=== PATIENT | male | born 1950 | race Caucasian/White ===

== ENCOUNTER → 2017-01-13 | Outpatient (CLI) | payer MEDICAID ==
[2017-01-13 08:26] LABS: CH 30.1; CHCM 33.1; HCT 43.7 % (39.0-53.0); HDW 2.45; HGB 14.1 gm/dL (13.0-17.5); MCH 29.7 pg (25.0-35.0); MCHC 32.4 g/dL (31.0-37.0); MCV 91.6 fL (80.0-100.0); Mean Platelet Volume 6.8; RBC 4.77 m/uL (4.30-5.90); RDW 13.8 % (11.5-15.5); WBC 5.8 k/uL (3.8-10.6)
[2017-01-13 11:06] LABS: ALT 39 U/L (21-72); AST 31 U/L (17-59); Alkaline Phosphatase 74 U/L (38-126); Anion Gap 8 mmol/L; Blood Urea Nitrogen 21 mg/dL (9-20); Calcium 9.4 mg/dL (8.4-10.2); Carbon Dioxide 29 mmol/L (22-30); Chloride 103 mmol/L (98-107); Cholesterol 181 mg/dL (<200); Glucose 94 mg/dL (74-99); HDL Cholesterol 72 mg/dL (40-60); Non-African American GFR(MDRD) >60 (>60 ml/min/1.73 sqM); Potassium 4.3 mmol/L (3.5-5.1); Sodium 140 mmol/L (137-145); Total Bilirubin 0.9 mg/dL (0.2-1.3); Total Protein 6.9 g/dL (6.3-8.2); Triglycerides 87 mg/dL (<150)
[2017-01-13 11:24] LABS: Prostate Specific Antigen 0.51 ng/mL (0.00-4.00)
== END | disposition home or self-care (01) ==
LOC: LABWHC1 07:42
PROVIDERS: ATTEND Family Medicine
DX: Z00.01 Encounter for general adult medical examination with abnormal findings (principal); Z13.9 Encounter for screening, unspecified
CPT/HCPCS: 36415; 80053; 80061; 84153; 85027

== ENCOUNTER 2017-03-07 07:07 | Day surgery (SDC) | payer MEDICAID ==
[2017-03-06 08:41] VITALS: BMI 22.8
[~2017-03-07 07:07] MED LIST: LACTATED RINGERS 1,000 ML IV SCH
[2017-03-07 07:26] VITALS: RESP 18; TEMP 96.8
[2017-03-07] MEDS ORDERED: LIDOCAINE 1% 20 ML VIAL (10MG/ML) FOR IV START INTRADERMA ONE (07:41)
[2017-03-07] MEDS ORDERED: PROPOFOL 10 MG/ML 20 ML VIAL IV ONE (08:01)
--- NOTE | 2017-03-07 08:17 | P.PCN ---
Date of Procedure: 03/07/17 Preoperative Diagnosis: Postoperative Diagnosis: Procedure(s) Performed: BRIEF HISTORY: Patient is a 66-year-old pleasant white male,scheduled for an elective colonoscopy as a part of screening for colorectal neoplasia. His last colonoscopy was on 10 years ago. PROCEDURE PERFORMED: Colonoscopy. PREOPERATIVE DIAGNOSIS: Screening for colon cancer IV sedation per Anesthesia. PROCEDURE: After informed consent was obtained, the patient, was brought into the endoscopy unit. IV sedation was administered by Anesthesia under continuous monitoring. Digital rectal examination was normal. Initially the Olympus CF- 160 flexible video colonoscope was then inserted in the rectum, gradually advanced into the cecum without any difficulty. Careful examination was performed as the scope was gradually being withdrawn. Ileocecal valve and the appendiceal orifice were visualized and appeared normal. Prep was excellent. Mucosa of the cecum, ascending colon, transverse colon, descending colon, sigmoid colon, and rectum appeared normal. Retroflexion was performed in the rectum and no lesions were seen. The patient tolerated the procedure well. IMPRESSION: Normal-appearing colon from rectum to cecum . RECOMMENDATIONS: Findings of this examination were discussed with the patient as well as some of his family. He was advised to have a repeat screening colonoscopy in 10 years. Implants: Indications for Procedure: Operative Findings: Description of Procedure:
[2017-03-07 08:41] VITALS: BP 120/74; PULSE 57
== END 2017-03-07 09:01 | disposition home or self-care (01) ==
LOC: ORWHC2ENDO 07:07
PROVIDERS: ATTEND Internal Medicine Gastroenterology
DX: Z12.11 Encounter for screening for malignant neoplasm of colon (principal); Z79.899 Other long term (current) drug therapy; Z88.0 Allergy status to penicillin
CPT/HCPCS: J2704; G0121

== ENCOUNTER → 2017-11-10 | Outpatient (CLI) | payer MEDICAID ==
[2017-11-10 14:46] LABS: Blood Urea Nitrogen 16 mg/dL (9-20)
== END | disposition home or self-care (01) ==
LOC: LABWHC1 14:16
PROVIDERS: ATTEND Otolaryngology
DX: H93.3X1 Disorders of right acoustic nerve (principal); H93.11 Tinnitus, right ear; H91.91 Unspecified hearing loss, right ear
CPT/HCPCS: 36415; 82565; 84520

== ENCOUNTER → 2017-11-11 | Outpatient (CLI) | payer MEDICAID ==
--- NOTE | 2017-11-11 10:41 | MR ---
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 TECHNIQUE: Multiplanar, multisequence images of the brain and brainstem were acquired before and aft er administration of 7 ml IV Gadavist. Diffusion weighted imaging was performed. Additional coned-d own sequences through the internal auditory canals and posterior cranial fossa before and after IV co ntrast administration. FINDINGS: Diffusion weighted images demonstrate no evidence of an acute ischemic lesion in the brain. T2/FLAIR weighted sequences show trace burden of bright foci, particularly in the subcortical region of the left temporal lobe. Nonspecific, likely relating to minimal changes of chronic small vessel is chemic disease. Midline structures demonstrate partially empty sella but otherwise normal morphology. The craniocerv ical junction is normal. Brain volume is appropriate. The ventricles are of normal caliber. There is no evidence of an acute intracranial hemorrhage, infarct, mass, mass-effect or an extra-axia l fluid collection. There is no cerebellopontine angle mass. Base internal auditory canals are symmetric. Brainstem and skull base abnormalities are not seen. Post contrast images demonstrate no evidence of pathologic enhancement in the posterior cranial ct a or the internal auditory canals. There is no abnormal enhancement of the labyrinths. Mild mucosal thickening within the ethmoid air cells. Globes are intact. IMPRESSION: 1. Only a couple foci of bright white matter change in the subcortical region, nonspecific, likely re lating to trace burden of chronic small vessel ischemic disease. 2. Otherwise, no intracranial abnormality seen. 3. No specific abnormality on acoustic MRI.
== END | disposition home or self-care (01) ==
LOC: RADMRIMAIN 07:27
PROVIDERS: ATTEND Otolaryngology
DX: R90.89 Other abnormal findings on diagnostic imaging of central nervous system (principal)
CPT/HCPCS: 70553; A9581

== ENCOUNTER → 2018-02-27 | Outpatient (CLI) | payer MEDICAID ==
[2018-02-27 09:07] LABS: HCT 41.2 % (39.0-53.0); HGB 13.5 gm/dL (13.0-17.5); MCH 29.2 pg (25.0-35.0); MCHC 32.7 g/dL (31.0-37.0); MCV 89.3 fL (80.0-100.0); Mean Platelet Volume 6.4; Platelet Count 240 k/uL (150-450); RBC 4.61 m/uL (4.30-5.90); RDW 13.6 % (11.5-15.5); WBC 5.8 k/uL (3.8-10.6)
[2018-02-27 09:08] LABS: Appearance,Urine Clear (Clear); Bilirubin,Urine Negative (Negative); Blood,Urine Negative (Negative); Color,Urine Yellow; Glucose,Urine (UA) Negative (Negative); Ketones,Urine Negative (Negative); Leukocyte Esterase,Urine Negative (Negative); Nitrite,Urine Negative (Negative); PH, Urine 5.5 (5.0-8.0); Protein,Urine Negative (Negative); Specific Gravity,Urine 1.016 (1.001-1.035); Urobilinogen,Urine <2.0 mg/dL (<2.0)
[2018-02-27 09:19] LABS: ALT 41 U/L (21-72); AST 37 U/L (17-59); Albumin 4.3 g/dL (3.5-5.0); Alkaline Phosphatase 60 U/L (38-126); Anion Gap 7 mmol/L; Blood Urea Nitrogen 17 mg/dL (9-20); Calcium 9.2 mg/dL (8.4-10.2); Carbon Dioxide 28 mmol/L (22-30); Chloride 105 mmol/L (98-107); Cholesterol 165 mg/dL (<200); Glucose 91 mg/dL (74-99); HDL Cholesterol 70 mg/dL (40-60); LDL Cholesterol,Calculated 81 mg/dL (0-99); Potassium 4.2 mmol/L (3.5-5.1); Sodium 140 mmol/L (137-145); Total Bilirubin 0.8 mg/dL (0.2-1.3); Total Protein 6.8 g/dL (6.3-8.2); Triglycerides 71 mg/dL (<150)
[2018-02-27 09:50] LABS: PSA Annual Screen 0.57 ng/mL (0.00-4.00)
== END | disposition home or self-care (01) ==
LOC: LABWHC1 08:47
PROVIDERS: ATTEND Family Medicine
DX: Z00.01 Encounter for general adult medical examination with abnormal findings (principal); Z13.9 Encounter for screening, unspecified; Z12.5 Encounter for screening for malignant neoplasm of prostate
CPT/HCPCS: 86803; 80061; 80053; 85027; 81003; 36415; G0103

== ENCOUNTER → 2018-12-07 | Outpatient (CLI) | payer MEDICARE ==
[2018-12-07 08:47] LABS: HCT 43.7 % (39.0-53.0); MCH 28.8 pg (25.0-35.0); MCHC 31.9 g/dL (31.0-37.0); MCV 90.3 fL (80.0-100.0); Mean Platelet Volume 6.5; Platelet Count 277 k/uL (150-450); RBC 4.85 m/uL (4.30-5.90); RDW 13.9 % (11.5-15.5)
[2018-12-07 09:07] LABS: Appearance,Urine Clear (Clear); Bilirubin,Urine Negative (Negative); Blood,Urine Negative (Negative); Color,Urine Light Yellow; Glucose,Urine (UA) Negative (Negative); Ketones,Urine Negative (Negative); Leukocyte Esterase,Urine Negative (Negative); Nitrite,Urine Negative (Negative); PH, Urine 6.5 (5.0-8.0); Protein,Urine Negative (Negative); Specific Gravity,Urine 1.013 (1.001-1.035); Urobilinogen,Urine <2.0 mg/dL (<2.0)
[2018-12-07 17:30] LABS: Albumin 4.4 g/dL (3.80-4.90); Albumin/Globulin Ratio 2.32 (1.60-3.17); Anion Gap 9.8 mmol/L (4.00-12.00); Calcium 9.1 mg/dL (8.7-10.3); Carbon Dioxide 27.2 mmol/L (21.6-31.8); Globulin 1.9 g/dL (1.6-3.3); Potassium 4.3 mmol/L (3.5-5.5); Total Bilirubin 0.6 mg/dL (0.2-1.2); Total Protein 6.3 g/dL (6.2-8.2)
== END | disposition home or self-care (01) ==
LOC: LABWHC1 08:18
PROVIDERS: ATTEND Family Medicine
DX: Z00.01 Encounter for general adult medical examination with abnormal findings (principal); R53.83 Other fatigue; E66.3 Overweight; N40.1 Benign prostatic hyperplasia with lower urinary tract symptoms
CPT/HCPCS: 36415; 80053; 80061; 81003; 84153; 85027

== ENCOUNTER → 2019-12-20 | Outpatient (CLI) | payer MEDICARE, OTHER ==
[2019-12-20 09:38] LABS: HCT 45.5 % (39.0-53.0); HGB 14.1 gm/dL (13.0-17.5); MCH 28.5 pg (25.0-35.0); MCV 91.9 fL (80.0-100.0); Mean Platelet Volume 7.2; Platelet Count 247 k/uL (150-450); RBC 4.95 m/uL (4.30-5.90); RDW 13.7 % (11.5-15.5)
[2019-12-20 17:20] LABS: African American GFR (CKD) 107.1 (60.0-200.0); Albumin 4.5 g/dL (3.80-4.90); Albumin/Globulin Ratio 2.14 (1.60-3.17); BUN/Creat Ratio 22.5 Ratio (12.00-20.00); Calcium 9.1 mg/dL (8.7-10.3); Chol/HDL Ratio 2.6; Globulin 2.1 g/dL (1.6-3.3); LDL Cholesterol,Calculated 105.8 mg/dL (0.0-131.0); Non-African American GFR(CKD) 92.4 (60.0-200.0); Potassium 4.3 mmol/L (3.5-5.5); Total Bilirubin 0.7 mg/dL (0.3-1.2); Total Protein 6.6 g/dL (6.2-8.2); VLDL Calculation 19.2 mg/dL (5.00-40.00)
== END | disposition home or self-care (01) ==
LOC: LABWHC1 08:15
PROVIDERS: ATTEND Family Medicine
DX: Z00.01 Encounter for general adult medical examination with abnormal findings (principal); N40.1 Benign prostatic hyperplasia with lower urinary tract symptoms; R53.83 Other fatigue; E66.3 Overweight
CPT/HCPCS: 36415; 80053; 80061; 84153; 85027

== ENCOUNTER 2021-07-11 08:32 | Day surgery (SDC) | payer MEDICARE ==
[2021-07-09 13:55] VITALS: BMI 22.8
[2021-07-11 09:22] VITALS: TEMP 97.1
[2021-07-11] MEDS ORDERED: PROPOFOL 10 MG/ML 20 ML VIAL IV ONE (09:46)
--- NOTE | 2021-07-11 10:03 | P.PCN ---
Date of Procedure: 07/11/21 Procedure(s) Performed: BRIEF HISTORY: Patient is a 71-year-old pleasant male scheduled for an elective colonoscopy as a part of evaluation of abdominal pain and change in bowel habits. PROCEDURE PERFORMED: Colonoscopy. PREOPERATIVE DIAGNOSIS: Abdominal pain and change in bowel habits. IV sedation per Anesthesia. PROCEDURE: After informed consent was obtained, the patient, was brought into the endoscopy unit. IV sedation was administered by Anesthesia under continuous monitoring. Digital rectal examination was normal. Initially the Olympus CF-160 flexible video colonoscope was then inserted in the rectum, gradually advanced into the cecum without any difficulty. Careful examination was performed as the scope was gradually being withdrawn. Ileocecal valve and the appendiceal orifice were visualized and appeared normal. Prep was excellent. Terminal ileum was intubated and 20 cm visualized and appeared normal. Mucosa of the cecum, ascending colon, transverse colon, descending colon, sigmoid colon, and rectum appeared normal. Scattered sigmoid diverticulosis. Retroflexion was performed in the rectum and no lesions were seen. The patient tolerated the procedure well. IMPRESSION: Normal-appearing colon from rectum to cecum with no evidence of colorectal neoplasia . Normal-appearing terminal ileum with no evidence of Crohn's ileitis Scattered sigmoid diverticulosis. RECOMMENDATIONS: Findings of this examination were discussed with the patient as well as his family. He was advised to have a repeat screening colonoscopy in 10 years..
[2021-07-11 10:24] VITALS: BP 109/72; PULSE 65; RESP 18
== END 2021-07-11 10:38 | disposition home or self-care (01) ==
LOC: ORWHC2ENDO 08:32
PROVIDERS: ATTEND Internal Medicine Gastroenterology
DX: R10.9 Unspecified abdominal pain (principal); K57.90 Diverticulosis of intestine, part unspecified, without perforation or abscess without bleeding; R19.4 Change in bowel habit; Z88.0 Allergy status to penicillin
CPT/HCPCS: 45378; J2704

== ENCOUNTER → 2021-07-24 | Outpatient (CLI) | payer MEDICARE ==
[2021-07-24 13:32] LABS: ALT 20 U/L (4-49); AST 27 U/L (17-59); African American GFR (CKD) >90 (>60 ml/min/1.73 sqM); Albumin 4.4 g/dL (3.5-5.0); Albumin/Globulin Ratio 1.6; Alkaline Phosphatase 71 U/L (38-126); Anion Gap 6 mmol/L; Blood Urea Nitrogen 18 mg/dL (9-20); C Reactive Protein <0.5 mg/dL (<1.0); Calcium 9.3 mg/dL (8.4-10.2); Carbon Dioxide 31 mmol/L (22-30); Chloride 102 mmol/L (98-107); Globulin 2.7 g/dL; Glucose 92 mg/dL (74-99); Non-African American GFR(CKD) >90 (>60 ml/min/1.73 sqM); Potassium 4.4 mmol/L (3.5-5.1); Sodium 139 mmol/L (137-145); Total Bilirubin 0.7 mg/dL (0.2-1.3); Total Protein 7.1 g/dL (6.3-8.2)
[2021-07-24 18:29] LABS: Reticulocyte % 0.81 % (0.10-1.80)
[2021-07-24 22:26] LABS: % Iron Saturation 29.28 (15.00-50.00); Iron 91 ug/dL (65-175); Total Iron Binding Capacity 312 ug/dL (228-460)
== END | disposition home or self-care (01) ==
LOC: LABWHC1 12:01
PROVIDERS: ATTEND Psychiatry & Neurology Neurology
DX: G89.4 Chronic pain syndrome (principal); R20.8 Other disturbances of skin sensation; M51.26 Other intervertebral disc displacement, lumbar region
CPT/HCPCS: 36415; 80053; 82607; 82728; 82746; 83540; 83550; 84439; 84443; 85045; 85652; 86140

== ENCOUNTER → 2022-03-01 | Outpatient (CLI) | payer MEDICARE ==
[2022-03-01 18:13] LABS: HGB 14.1 g/dL (13.0-17.0); MCH 29.1 pg (27.0-32.0); MCHC 32.8 g/dL (32.0-37.0); MCV 88.7 fL (80.0-97.0); Mean Platelet Volume 9.6 fL (9.5-12.2); NRBC Per 100 WBC 0 /100 WBCS (0.0-0.0); Platelet Count 242 X 10*3/uL (140-440); RBC 4.85 X 10*6/uL (4.40-5.60); RDW 13.9 % (11.5-14.5)
[2022-03-01 18:28] LABS: ALT 17 U/L (10-49); AST 25 U/L (14-35); African American GFR (CKD) 105.6 (60.0-200.0); Albumin 4.5 g/dL (3.8-4.9); Albumin/Globulin Ratio 2.01 (1.60-3.17); Alkaline Phosphatase 74 U/L (41-126); BUN/Creat Ratio 23.63 Ratio (12.00-20.00); Blood Urea Nitrogen 18.9 mg/dL (9.0-27.0); Calcium 9.1 mg/dL (8.7-10.3); Chloride 103 mmol/L (96-109); Chol/HDL Ratio 2.79 Ratio; Globulin 2.2 g/dL (1.6-3.3); Glucose 91 mg/dL (70-110); LDL Cholesterol,Calculated 113.7 mg/dL (0.0-131.0); Non-African American GFR(CKD) 91.2 (60.0-200.0); Potassium 4.7 mmol/L (3.5-5.5); Sodium 136 mmol/L (135-145); Total Protein 6.8 g/dL (6.2-8.2); VLDL Calculation 13.42 mg/dL (5.00-40.00)
== END | disposition home or self-care (01) ==
LOC: LABWHC1 11:58
PROVIDERS: ATTEND Family Medicine
DX: Z00.01 Encounter for general adult medical examination with abnormal findings (principal); R53.83 Other fatigue; E66.3 Overweight; N40.1 Benign prostatic hyperplasia with lower urinary tract symptoms
CPT/HCPCS: 36415; 80053; 80061; 84153; 85027

== ENCOUNTER → 2022-03-21 | Outpatient (CLI) | payer MEDICARE ==
--- NOTE | 2022-03-21 11:52 | MR ---
EXAMINATION TYPE: MR lumbar spine wo con DATE OF EXAM: 03/21/2022 COMPARISON: NONE HISTORY: Low back pain, heavy legs, numbness rt leg/foot TECHNIQUE: Multiplanar, multisequence imaging of the lumbar spine is performed without IV contrast. FINDINGS: Slight scoliotic curvature. Sagittal images of the lumbar spine show vertebral body heights and alignment to appear satisfactory. Multilevel disc desiccation and mild to moderate disc space na rrowing. The conus medullaris is normal in position and signal ending at L1 level. The bone marrow signal intensity is within normal limits. Mild multilevel anterior spurring. Axial images at T12-L1 appear within normal limits. Axial images at L1-L2 level show mild to moderate broad disc bulge with left paracentral disc protrus ion component effacing the anterior thecal sac. Patent bilateral foramina. Axial images at L2-L3 level show mild/moderate broad disc protrusion mildly effacing the anterior the jf sac with mild left-sided anterior inferior neural foraminal narrowing. Patent right-sided neural foramina. Axial images at the L3-L4 level show [id number] broad disc bulge mildly effaces the anterior th ecal sac and causing mild left greater than right bilateral anterior inferior neural foraminal narrow ing. Axial images at L4-L5 level show mild facet arthropathy and ligament flavum hypertrophy mildly effaci ng posterior lateral thecal sac on axial images 25 and 26. There is mild to moderate broad-based post erior disc protrusion mildly effaces the anterior thecal sac. There is mild left sided neural foramin al narrowing. There is additional broad-based right foraminal disc protrusion component causing more severe right-sided neural foraminal narrowing axial image 27 and encroachment into the right L4 nerve extraforaminal level sagittal images 13 and 14. Axial images at L5-S1 level show mild/moderate facet arthropathy and ligamentum flavum hypertrophy. T iny central disc protrusion with spinal canal is preserved. Bilateral neural foramina are patent. Partial visualization of mildly distended bladder. Paraspinal muscle bulk is maintained. IMPRESSION: Slight scoliotic curvature. Multilevel degenerative changes as detailed above. Attention to the L4-L5 level where eccentric right sided disc herniation causes severe right-sided neural carisa inal narrowing and effacement of the right L4 nerve likely accounting for patient's clinical symptoms .
== END | disposition home or self-care (01) ==
LOC: RADMRIMAIN 10:32
PROVIDERS: ATTEND Physical Medicine & Rehabilitation Pain Medicine
DX: M51.26 Other intervertebral disc displacement, lumbar region (principal); M79.604 Pain in right leg; R20.8 Other disturbances of skin sensation; M47.817 Spondylosis without myelopathy or radiculopathy, lumbosacral region; M54.16 Radiculopathy, lumbar region; M41.86 Other forms of scoliosis, lumbar region
CPT/HCPCS: 72148

== ENCOUNTER → 2023-03-17 | Outpatient (CLI) | payer MEDICARE ==
[2023-03-17 20:51] LABS: ALT 20 U/L (10-49); AST 21 U/L (14-35); Albumin 4.8 d/dL (3.8-4.9); Alkaline Phosphatase 75 U/L (41-126); BUN/Creat Ratio 20.86 Ratio (12.00-20.00); Blood Urea Nitrogen 14.6 mg/dL (9.0-27.0); Calcium 9.4 mg/dL (8.7-10.3); Carbon Dioxide 27.2 mmol/L (21.6-31.8); Chloride 103 mmol/L (96-109); Chol/HDL Ratio 2.78 Ratio; Glucose 87 mg/dL (70-110); Potassium 4.3 mmol/L (3.5-5.5); Sodium 139 mmol/L (135-145); Total Bilirubin 0.5 mg/dL (0.3-1.2); Total Protein 6.8 d/dL (6.2-8.2)
[2023-03-17 20:54] LABS: HCT 41.4 % (39.6-50.0); HGB 13.2 d/dL (13.0-17.0); MCH 30.2 pg (27.0-32.0); MCHC 31.9 d/dL (32.0-37.0); MCV 94.7 FL (80.0-97.0); Mean Platelet Volume 9.6 FL (9.5-12.2); NRBC Per 100 WBC 0 X 10*3/uL (0.00-0.01); Platelet Count 285 X 10*3/uL (140-440); RBC 4.37 X 10*6/uL (4.40-5.60); RDW 14.7 % (11.5-14.5); WBC 4.66 X 10*3/uL (4.50-10.00)
== END | disposition home or self-care (01) ==
LOC: LABWHC1 09:30
PROVIDERS: ATTEND Family Medicine
DX: Z00.01 Encounter for general adult medical examination with abnormal findings (principal); E66.3 Overweight; N40.1 Benign prostatic hyperplasia with lower urinary tract symptoms; R53.83 Other fatigue
CPT/HCPCS: 36415; 80053; 80061; 84153; 85027